=== PATIENT | female | born 1970 | race Caucasian/White ===

== ENCOUNTER 2021-11-29 14:38 | Emergency (ER) | payer OTHER ==
[2021-11-29 15:27] LABS: BILIRUBIN NEGATIVE (NEGATIVE); BLOOD NEGATIVE Ery/uL (NEGATIVE); CLARITY CLEAR (CLEAR); COLOR YELLOW (YELLOW); GLUCOSE (U) NORMAL (NORMAL); LEUKOCYTES NEGATIVE Leu/uL (NEGATIVE); NITRITE NEGATIVE (NEGATIVE); PROTEIN NEGATIVE (NEGATIVE); SPECIFIC GRAVITY 1.015 (1.001-1.030); UROBILINOGEN 0.2 mg/dL (0.2-1.0); pH 7.5 (5.0-9.0)
[2021-11-29 16:45] LABS: EOSINOPHIL 1.6 % (0-5); HCT 40.9 % (37.0-47.0); HGB 14.1 g/dl (12.5-16.0); LYMPHOCYTE 37.6 % (15-48); MCHC 34.5 g/dL (32.0-36.0); MCV 98.6 fL (78.0-100.0); MONOCYTE 8.2 % (0-12); MPV 9.3 fL (6.0-9.5); NEUTROPHIL 51.3 % (41-80); NRBC 0; PLT 350 K/uL (150-400); RBC 4.15 M/uL (4.20-5.40); RDW 11.9 % (11.5-14.0); WBC 7.7 K/uL (4.0-10.5)
[2021-11-29 16:59] LABS: BUN/CREAT RATIO (CALC) 15.7 RATIO; CREATININE 0.89 mg/dL (0.51-0.95); POTASSIUM 3.8 mmol/L (3.5-5.1)
[2021-11-29] MEDS ORDERED: CYCLOBENZAPRINE10 MG PO (18:27)
[2021-11-29] MEDS ORDERED: NAPROXEN500 MG PO (18:27)
== END 2021-11-29 18:45 | disposition home or self-care (01) ==
LOC: FER 14:38
PROVIDERS: Emergency Medicine
DX: R10.31 Right lower quadrant pain (principal); M54.50 Low back pain, unspecified; E03.9 Hypothyroidism, unspecified; Z79.890 Hormone replacement therapy
CPT/HCPCS: 36415; 80048; 81003; 85025; J1885; Q9967